=== PATIENT | female | born 1980 | race African-American/Black ===

== ENCOUNTER 2024-12-30 14:02 | Emergency (ER) | payer OTHER ==
[~2024-12-30] VITALS: Ht 175.3 cm; Wt 123.8 kg
[2024-12-30 14:18] VITALS: TEMP 98.2
[2024-12-30 14:51] LABS: APPEARANCE,URINE SLIGHTLY CLOUDY (CLEAR); BLOOD, URINE TRACE-INTA Ery/uL (NEGATIVE); LEUKOCYTE ESTERASE ,URINE TRACE (NEGATIVE); NITRITE, URINE POSITIVE (NEGATIVE); UGLUCOSE NEGATIVE (NEGATIVE)
[2024-12-30 14:54] LABS: PREGNANCY TEST URINE QUAL NEGATIVE (NEGATIVE)
[2024-12-30 14:56] LABS: ADD URINE CULTURE YES
[2024-12-30] MEDS ORDERED: NITR100C6 PO (15:11)
[2024-12-30 16:08] VITALS: BP 124/84; O2SAT 99
== END 2024-12-30 16:08 | disposition home or self-care (01) ==
LOC: ER 14:18
DX: N39.0 Urinary tract infection, site not specified (principal); R32 Unspecified urinary incontinence; E11.9 Type 2 diabetes mellitus without complications; I10 Essential (primary) hypertension; Z91.018 Allergy to other foods
CPT/HCPCS: 81001; 84703-TC; 87086-TC; 87186-TC